=== PATIENT | male | born 1990 ===

== ENCOUNTER 2018-10-28 12:47 | Emergency (ER) | payer BC ==
--- NOTE | 2018-10-28 15:24 | ED PDOC ---
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 Patient reports he had a nose bleed yesterday that resolved on its own. Nose bleed returned today and has not sto pped. Patient was very anxious when nose bleed started. He states his blood pressure is usually controlled, but has been high today due to anxiety. No other symptoms. Patient has an upcoming gastric sleeve surgery. PMD: Carl Quiros Past Medical History Reviewed: Historical Data, Nursing Documentation, Vital Signs Vital Signs: Last Vital Signs Temp 97.6 F 10/28/18 13:48 Pulse 118 H 10/28/18 13:48 Resp 16 10/28/18 13:48 BP 218/125 H 10/28/18 13:48 Pulse Ox 98 10/28/18 13:48 - Medical History PMH: HTN Other PMH: obseity - Surgical History Surgical History: No Surg Hx - Family History Family History: States: Unknown Family Hx - Social History Current smoker - smoking cessation education provided: No Ex-Smoker (has not smoked in the last 12 months): No Alcohol: None Drugs: Denies - Allergies Allergies/Adverse Reactions: Allergies Allergy/AdvReac Type Severity Reaction Status Date / Time No Known Allergies Allergy Verified 10/28/18 13:48 Review of Systems ROS Statement: Except As Marked, All Systems Reviewed And Found Negative ENT: Positive for: Other (nose bleed) Psych: Positive for: Anxiety Physical Exam - Reviewed Nursing Documentation Reviewed: Yes Vital Signs Reviewed: Yes - Physical Exam Appears: Positive for: No Acute Distress Head Exam: Positive for: ATRAUMATIC, NORMOCEPHALIC Skin: Positive for: Normal Color, Warm, Dry Eye Exam: Positive for: EOMI, Normal appearance, PERRL ENT: Positive for: Other (no active bleeding from either nare, no obvious laceration) Neck: Positive for: Normal Cardiovascular/Chest: Positive for: Regular Rate, Rhythm Respiratory: Positive for: Normal Breath Sounds. Negative for: Respiratory Distress Gastrointestinal/Abdominal: Positive for: Normal Exam Extremity: Positive for: Normal ROM (upper and lower). Negative for: Pedal Edema, Deformity Neurologic/Psych: Positive for: Alert, Oriented (x3) - Laboratory Results Result Diagrams: 10/28/18 15:38 - ECG O2 Sat by Pulse Oximetry: 98 (RA) Pulse Ox Interpretation: Normal Medical Decision Making Medical Decision Making: Time: 1521 Plan: epistaxis, resolved on time of arrival bp high --Observe patient --CBC --PT/INR --Reevaluation 1899 during observation pt had no recurrent bleeding labs reviewed slight anemia, informed pt and sent rfaxed results with pt persmission to dr quiros his pcp --BP improved with medication here. pt feels improved and told to follow up with pcp for blood pressure control pt has ENT follow up already return precautions given 1929 pt stable for dc Scribe Attestation: Documented by Rochelle Stephens, acting as a scribe for May Rodriguez MD. Provider Scribe Attestation: All medical record entries made by the Scribe were at my direction and personally dictated by me. I have reviewed the chart and agree that the record accurately reflects my personal performance of the history, physical exam, med ica decision making, and the department course for this patient. I have also personally directed, reviewed, and agree with the discharge instructions and disposition. Disposition - Clinical Impression Clinical Impression: Epistaxis, Anemia - Patient ED Disposition Is Patient to be Admitted: No Counseled Patient/Family Regarding: Studies Performed, Diagnosis, Need For Followup - Disposition Disposition: Routine/Home Disposition Time: 19:30 Condition: IMPROVED Additional Instructions: your bleeding resolved without intervention keep your blood pressure well controlled- follow up with Dr Quiros this week for that follow up with your ENT as instructed in 2 days return to the ED with any worsening or concerning symptoms Instructions: Anemia Caused by Low Iron, Nosebleeds (DC) Forms: [employer] (Tongan), [facility] ED School/Work Excuse
[2018-10-28 15:44] LABS: BASO # 0.1 K/uL (0.0-0.2); BASO % 0.6 % (0.0-2.0); EOS # 0.1 K/uL (0.0-0.7); EOS % 0.9 % (0.0-4.0); HEMOGLOBIN 10.9 g/dL (12.0-18.0); LYMPH # 1.3 K/uL (1.0-4.3); LYMPH % 12.4 % (20.0-40.0); MEAN CELL VOLUME 79.3 fl (80.0-94.0); MEAN CORPUSCULAR HEMOGLOBIN 25.6 pg (27.0-31.0); MEAN CORPUSCULAR HGB CONC 32.2 g/dL (33.0-37.0); MEAN PLATELET VOLUME 7.2 fl (7.2-11.7); MONO # 0.8 K/uL (0.0-0.8); MONO % 7.5 % (0.0-10.0); NEUT % 78.6 % (50.0-75.0); NRBC % 0.1 % (0.0-0.0); RBC 4.26 Mil/uL (4.40-5.90); RED CELL DISTRIBUTION WIDTH 17.1 % (11.5-14.5); WHITE BLOOD COUNT 10.1 K/uL (4.8-10.8)
[2018-10-28 16:17] LABS: INR 1.1; PROTHROMBIN TIME 12.9 Seconds (9.8-13.1)
[2018-10-28] MEDS ORDERED: Labetalol 5mg/ml (4ml) IVP STA ×2 (17:53→19:13)
[2018-10-28] MEDS ORDERED: Labetalol 5mg/ml (4ml) ONE ×2 (18:16→19:46)
[2018-10-28 20:52] VITALS: BP 172/94; PULSE 108; RESP 18; TEMP 99.1
[2018-10-29 13:09] VITALS: O2SAT 98
== END 2018-10-28 21:02 | disposition home or self-care (01) ==
LOC: H.ER 12:47
DX: R04.0 Epistaxis (principal); D64.9 Anemia, unspecified; E66.9 Obesity, unspecified; F41.9 Anxiety disorder, unspecified; I10 Essential (primary) hypertension

== ENCOUNTER 2019-01-26 13:36 | Emergency (ER) | payer BC, MEDICAID ==
[2019-01-26 14:29] VITALS: O2SAT 98
--- NOTE | 2019-01-26 15:12 | ED PDOC ---
HPI: Skin/Bite Injury Time Seen by Provider: 01/26/19 14:48 Chief Complaint (Nursing): Male Genitourinary History Per: Patient Onset/Duration Of Symptoms: Other (3 weeks) Current Symptoms Are (Timing): Still Present Location Of Injury: Anterior: Abdomen Quality Of Symptoms: Painful, Swollen Severity: Moderate Additional Complaint(s): Swelling and pain to lower abd x 3 weeks. Denies fever or drainage. No difficulty or pain on urination. Denies nausea vomiting or diarrhea. Past Medical History Vital Signs: Last Vital Signs Temp 98.8 F 01/26/19 14:26 Pulse 118 H 01/26/19 14:26 Resp 20 01/26/19 14:26 BP 168/88 H 01/26/19 14:26 Pulse Ox 98 01/26/19 14:26 Primary Care Provider: FAMILY PROVIDER,NO - Medical History PMH: HTN Denies: Chronic Kidney Disease - Family History Family History: States: Unknown Family Hx - Home Medications Home Medications: Ambulatory Orders Medication Instructions Recorded Sulfamethoxazole/Trimethoprim 1 tab PO BID #20 tab 01/26/19 [Bactrim DS 800 mg-160 mg] - Allergies Allergies/Adverse Reactions: Allergies Allergy/AdvReac Type Severity Reaction Status Date / Time No Known Allergies Allergy Verified 10/28/18 13:48 Review of Systems Constitutional: Negative for: Fever Gastrointestinal: Positive for: Abdominal Pain. Negative for: Nausea, Vomiting, Diarrhea Genitourinary Male: Negative for: Dysuria, Frequency Physical Exam - Physical Exam Appears: Positive for: Non-toxic, No Acute Distress Gastrointestinal/Abdominal: Positive for: Other (Pannus edemetous, tender, no drainage) Male Genital Exam: Negative for: hernia mass, scrotum tenderness (R), scrotum tenderness (L), testicular tenderness (R), testicular tenderness (L) - Laboratory Results Result Diagrams: 01/26/19 15:15 01/26/19 15:15 - ECG O2 Sat by Pulse Oximetry: 98 Disposition - Clinical Impression Clinical Impression: Cellulitis, Panniculitis - Patient ED Disposition Is Patient to be Admitted: No Counseled Patient/Family Regarding: Studies Performed, Diagnosis, Need For Followup, Rx Given - Disposition Referrals: [facility] [Outside] Disposition: Routine/Home Disposition Time: 17:53 Condition: FAIR Prescriptions: Sulfamethoxazole/Trimethoprim [Bactrim DS 800 mg-160 mg] 1 tab PO BID #20 tab Instructions: Cellulitis and Erysipelas (Skin Infections) Forms: [facility] (Paraguayan)
[2019-01-26 15:27] LABS: BASO # 0.1 K/uL (0.0-0.2); BASO % 0.6 % (0.0-2.0); EOS # 0.2 K/uL (0.0-0.7); EOS % 1.7 % (0.0-4.0); HEMOGLOBIN 11.1 g/dL (12.0-18.0); LYMPH # 1.1 K/uL (1.0-4.3); LYMPH % 11.3 % (20.0-40.0); MEAN CORPUSCULAR HGB CONC 31.8 g/dL (33.0-37.0); MEAN PLATELET VOLUME 6.7 fl (7.2-11.7); MONO # 0.7 K/uL (0.0-0.8); MONO % 7.2 % (0.0-10.0); NEUT # 7.8 K/uL (1.8-7.0); NEUT % 79.2 % (50.0-75.0); NRBC % 0.2 % (0.0-0.0); RBC 4.64 Mil/uL (4.40-5.90); RED CELL DISTRIBUTION WIDTH 19.1 % (11.5-14.5); WHITE BLOOD COUNT 9.9 K/uL (4.8-10.8)
[2019-01-26 15:31] LABS: VENOUS BLOOD GAS BASE EXCESS 9.6 mmol/L (0.0-2.0); VENOUS BLOOD GAS PCO2 54 mmHg (40-60); VENOUS BLOOD GAS PO2 33 mm/Hg (30-55); VENOUS BLOOD PH 7.43 (7.32-7.43)
[2019-01-26 15:34] LABS: MEAN CELL VOLUME 75.3 fl (80.0-94.0)
[2019-01-26 15:40] LABS: ALB/GLOB RATIO 1.1 (1.0-2.1); ALBUMIN 4.1 g/dL (3.5-5.0); ALT/SGPT 42 U/L (21-72); AST/SGOT 42 U/L (17-59); BLOOD UREA NITROGEN 13 mg/dl (9-20); CALCIUM 8.8 mg/dL (8.4-10.2); GFR NON-AFRICAN AMERICAN > 60
[2019-01-26] MEDS ORDERED: Vancomycin 1 g Inj ONE (15:58)
[2019-01-26] MEDS ORDERED: Potassium Chloride 20 mEq ER Tab PO ONE ×2 (16:12→18:41)
--- NOTE | 2019-01-26 17:57 | US ---
Date of service: 01/26/2019 HISTORY: Attention to lower abd pannus r/o abscess COMPARISON: None available TECHNIQUE: Limited abdominal ultrasound of the region of interest. FINDINGS: Limited sonographic evaluation of the region of interest, midline abdominal pannus in location of patient pain. Subcutaneous edema evident. No focal fluid collection or abscess identified. IMPRESSION: Limited sonographic evaluation of the region of interest, midline abdominal pannus in location of patient pain. Subcutaneous edema evident. No focal fluid collection or abscess identified.
[2019-01-26 19:19] VITALS: BP 150/70; PULSE 104; RESP 15; TEMP 98.6
== END 2019-01-26 18:35 | disposition home or self-care (01) ==
LOC: H.ER 13:36
DX: M79.3 Panniculitis, unspecified (principal); I10 Essential (primary) hypertension